=== PATIENT | female | born 1965 | race Caucasian/White ===

== ENCOUNTER → 2020-11-29 | Outpatient (CLI) | payer BC, OTHER | LOC: KOH-I 10:00 | DX: M79.672 Pain in left foot (principal); M19.072 Primary osteoarthritis, left ankle and foot | CPT/HCPCS: 73630; 73650 ==

== ENCOUNTER → 2020-12-21 | Outpatient (CLI) | payer BC, OTHER | LOC: KOH-I 10:00 | DX: M79.672 Pain in left foot (principal); G89.29 Other chronic pain | CPT/HCPCS: 73721 ==

== ENCOUNTER → 2020-12-24 | Outpatient (CLI) | payer BC, OTHER | LOC: KOH-I 09:02 | DX: M79.672 Pain in left foot (principal); G89.29 Other chronic pain; M79.89 Other specified soft tissue disorders; R93.7 Abnormal findings on diagnostic imaging of other parts of musculoskeletal system | CPT/HCPCS: 73718 ==